=== PATIENT | female | born 1950 | race Caucasian/White ===

== ENCOUNTER 2019-04-16 16:50 | Emergency (ER) | payer MEDICARE ==
[~2019-04-16] VITALS: Ht 154.9 cm; Wt 93.1 kg
[2019-04-16] MEDS ORDERED: LOSA25TA41 PO (17:26)
[2019-04-16] MEDS ORDERED: ACETAMINOPHEN 325 MG TABLET PO ONE (18:00)
[2019-04-16] MEDS ORDERED: LIDOCAINE 1% 10 ML VIAL INJ ONE (19:30)
[2019-04-16 19:33] VITALS: BP 144/73
[2019-04-16] MEDS ORDERED: BACITRACIN 0.9 GM PACKET OINTMENT TP ONE (19:45)
== END 2019-04-16 20:08 | disposition home or self-care (01) ==
LOC: EMS 16:52
DX: S01.81XA Laceration without foreign body of other part of head, initial encounter (principal); I10 Essential (primary) hypertension; Z79.899 Other long term (current) drug therapy; Z98.890 Other specified postprocedural states; W10.8XXA Fall (on) (from) other stairs and steps, initial encounter; Y93.89 Activity, other specified; Y92.89 Other specified places as the place of occurrence of the external cause; Y99.8 Other external cause status
CPT/HCPCS: 12014; 70450; 73562; 99284; J3490